=== PATIENT | female | born 1975 | race Caucasian/White ===

== ENCOUNTER → 2018-12-18 14:39 | Outpatient (CLI) | payer OTHER, SELFPAY ==
--- NOTE | 2018-12-18 14:42 | DI.US.S_ITS ---
PROCEDURE: US PELVIC COMPLETE INDICATIONS: PELVIC PAIN. There is a history of partial right oophorectomy for benign ovarian mass. Family history of cervical, uterus, and ovarian cancer. TECHNIQUE: Real-time scanning was performed of the pelvic organs, with image documentation. Additional endovaginal scanning was necessary due to incomplete visualization of the adnexal and endometrial structures by transabdominal scanning. COMPARISON: None. FINDINGS: Transabdominal scanning: No pathologic free abdominal or pelvic fluid. Endovaginal scanning: Uterus: Uterus is normal in size at 8.1 x 4.3 x 4.9 cm. The endometrium measures 4 mm in combined thickness. Ovaries: The right ovary measures 2.4 x 1.6 x 2 cm. The left ovary measures 3.1 x 2.1 x 2.1 cm. The ovaries have a normal sonographic appearance, with normal-appearing cystic follicles. There is a 1.9 cm dominant follicle involving the left ovary, which is considered to be within normal limits. No adnexal masses are seen. IMPRESSION: No suspicious masses are seen. No acute findings are seen. Normal appearing bilateral cystic ovarian follicles are seen. Dictated by: Lexa Balderrama M.D. on 12/19/2018 at 8:21 Approved by: Lexa Balderrama M.D. on 12/19/2018 at 8:28
== END ==
PROVIDERS: PCP Physician Assistant; Visit Provider Obstetrics & Gynecology
DX: R10.2 Pelvic and perineal pain (principal); Z87.42 Personal history of other diseases of the female genital tract; Z80.49 Family history of malignant neoplasm of other genital organs; Z80.41 Family history of malignant neoplasm of ovary
CPT/HCPCS: 76830; 76856

== ENCOUNTER → 2018-12-21 12:50 | Outpatient (CLI) | payer OTHER, SELFPAY ==
[2018-12-21 15:21] LABS: Alanine Aminotransferase 48 IU/L (9-52); Albumin 4.3 g/dL (3.5-5.0); Albumin Globulin Ratio 1.6 (1.0-2.8); Alkaline Phosphatase 66 U/L (38-126); Aspartate Aminotransferase 28 IU/L (14-36); Bilirubin Total 0.3 mg/dL (0.2-1.3); Blood Urea Nitrogen 13 mg/dL (7-17); Calcium 9.1 mg/dL (8.4-10.2); Carbon Dioxide 28 mmol/L (22-32); Chloride 100 mmol/L (98-107); Estimated Glomerular Filt Rate > 60.0 mL/min (>60); Globulin 2.7 g/dL (1.7-4.1); Glucose 99 mg/dL (70-100); HEMOLYSIS < 15 (0-50); Potassium 4.5 mmol/L (3.4-5.1); Sodium 137 mmol/L (137-145)
[2018-12-21 15:37] LABS: Free T3, Triiodothyronine Free 3.26 pg/mL (2.77-5.27); Free T4, Direct Thyroxine 0.76 ng/dL (0.78-2.19)
[2018-12-21 15:51] LABS: Thyroid Stimulating Hormone 2.39 uIU/mL (0.47-4.68)
== END ==
PROVIDERS: PCP Physician Assistant; Visit Provider Naturopath
DX: E06.3 Autoimmune thyroiditis (principal)
CPT/HCPCS: 36415; 80053; 84439; 84443; 84481

== ENCOUNTER → 2019-01-09 11:35 | Outpatient (CLI) | payer OTHER, SELFPAY ==
[2019-01-09 12:21] LABS: Influenza A and B by PCR Rapid Negative (Negative)
== END ==
PROVIDERS: PCP Physician Assistant; Visit Provider Obstetrics & Gynecology
DX: R50.9 Fever, unspecified (principal); M79.10 Myalgia, unspecified site
CPT/HCPCS: 87400

== ENCOUNTER → 2019-01-09 11:56 | Outpatient (CLI) | payer OTHER, SELFPAY ==
[2019-01-09 12:59] LABS: Cancer Antigen 125 7 U/mL (0-35)
== END ==
PROVIDERS: PCP Physician Assistant; Visit Provider Obstetrics & Gynecology
DX: N83.202 Unspecified ovarian cyst, left side (principal); R50.9 Fever, unspecified; M79.10 Myalgia, unspecified site
CPT/HCPCS: 36415; 86304; 87400

== ENCOUNTER → 2019-01-11 15:07 | Outpatient (CLI) | payer OTHER, SELFPAY ==
[2019-01-11 19:54] LABS: Influenza A and B by PCR Rapid Negative (Negative)
== END ==
PROVIDERS: PCP Physician Assistant; Visit Provider Physician Assistant
DX: R68.89 Other general symptoms and signs (principal)
CPT/HCPCS: 87400

== ENCOUNTER → 2019-06-05 15:39 | Outpatient (CLI) | payer OTHER, SELFPAY ==
--- NOTE | 2019-06-05 15:42 | DI.RAD.S_ITS ---
PROCEDURE: XR ANKLE LT MIN 3V INDICATIONS: ankle pain TECHNIQUE: 3 views of the ankle were acquired. COMPARISON: None. FINDINGS: Bones: No displaced acute fractures or dislocations are identified. There moderate degenerative changes of the tibiotalar joint, best appreciated along the anterior margin of the joint, which may be related to previous injury. Irregularity of the lateral malleolus and medial malleolus tips probably is related to previous ligamentous injury. There are prominent plantar and Achilles spurs present. There is no suspicious osseous lesion. Ankle mortise is well-maintained. Soft tissues: There is an ankle effusion. Moderate soft tissue swelling about the ankle is present. IMPRESSION: 1. No acute fracture of the left ankle is appreciated. 2. Moderate degenerative changes of the ankle joint. 3. Ankle effusion. 4. Achilles and plantar calcaneal spurs. Dictated by: Tip Wells M.D. on 06/05/2019 at 15:06 Approved by: Tip Wells M.D. on 06/05/2019 at 15:13
== END ==
PROVIDERS: PCP Physician Assistant; Visit Provider Physician Assistant
DX: M25.572 Pain in left ankle and joints of left foot (principal); M25.472 Effusion, left ankle; M77.32 Calcaneal spur, left foot
CPT/HCPCS: 73610

== ENCOUNTER → 2019-06-12 17:07 | Outpatient (CLI) | payer OTHER, SELFPAY ==
--- NOTE | 2019-06-12 | DI.MRI.S_ITS ---
PROCEDURE: MR ANKLE LT WO/W CON INDICATIONS: Left ankle and instability TECHNIQUE: Noncontrast sagittal T1 spin echo and T2 fast spin echo with fat saturation, axial proton density fast spin echo and T2 fast spin echo with fat saturation, axial T1 spin echo with fat saturation, coronal T1 spin echo and T2 fast spin echo with fat saturation through the ankle/hindfoot. Post-contrast axial, coronal, and sagittal T1 spin echo with fat saturation through the ankle/hindfoot. COMPARISON: [facility], CR, XR ANKLE LT MIN 3V, 06/05/2019, 15:41. FINDINGS: Image quality: Diagnostic. Bones and joints: No acute fracture, dislocation, or suspicious osseous lesion is identified involving the osseous structures of the midfoot or hindfoot. There is a prominent plantar calcaneal spur with corresponding mild increased marrow signal. There is subtle increased marrow signal also evident involving portions of the talus, which may be reactive. The ankle mortise is well-maintained. There are no osteochondral defects involving the tibial plafond for the talar dome. However, there are small defects of the hyaline articular cartilage present. There is an ankle effusion. Posterior subtalar joint effusion is also present. Medial structures: The deltoid and the spring ligaments are irregular and heterogeneous, suggesting scarring from previous partial thickness injury. There is mild increased signal involving the distal aspect of the tibialis posterior tendon near the level of the navicular without associated tearing. A small amount of fluid is contained within its corresponding tendon sheath. The flexor hallucis longus and flexor digitorum longus tendons are intact. The posterior tibial nerve to the region of the tarsal tunnel appears to be within normal limits. Lateral structures: The anterior and posterior distal tibiofibular ligaments are somewhat heterogeneous. The anterior talofibular ligament appears to be completely torn. The posterior talofibular ligament is intact and there is streaky increased heterogeneity. The calcaneofibular ligament is intact. There is enlargement and increased signal involving the peroneus longus tendon along the posterior margin of the lateral malleolus without a definite tear evident. The peroneus brevis tendon demonstrates increased signal, as well. Fluid is contained within their corresponding tendon sheaths. There is increased signal evident within the region of the sinus tarsi. Anterior structures: The tibialis anterior, extensor hallucis longus, and extensor digitorum longus tendons appear intact. Posterior and plantar structures: Achilles tendon is intact. Borderline thickening of the medial band of the plantar fascia is present. Post contrast images: No suspicious osseous or soft tissue enhancement is evident. No soft tissue masses are appreciated. Mild synovial enhancement of the tibiotalar joint and the posterior subtalar joint are present. IMPRESSION: 1. Mild degenerative changes of the mid foot and hindfoot joints. 2. Moderate peroneus longus tendinopathy without significant tearing. There is also mild peroneus brevis tendinopathy. 3. Full-thickness anterior talofibular ligament tear may be chronic. Scarring of the other medial and lateral ankle ligaments is present without additional full-thickness tear is evident. 4. Mild tibialis posterior tenosynovitis. 5. Small tibiotalar and posterior subtalar joint effusions. Dictated by: Tip Wells M.D. on 06/13/2019 at 13:33 Approved by: Tip Wells M.D. on 06/13/2019 at 13:48
== END ==
PROVIDERS: PCP Physician Assistant; Visit Provider Podiatrist
DX: M67.90 Unspecified disorder of synovium and tendon, unspecified site (principal); M65.9 Synovitis and tenosynovitis, unspecified; M25.472 Effusion, left ankle
CPT/HCPCS: 73723; A9579

== ENCOUNTER → 2019-09-24 15:22 | Outpatient (CLI) | payer OTHER, SELFPAY ==
[2019-09-24 17:21] LABS: Hematocrit 40.8 % (36-46); Hemoglobin 13.6 g/dL (12.0-16.0)
[2019-09-24 17:53] LABS: Alanine Aminotransferase 27 IU/L (<35); Albumin Globulin Ratio 1.5 (1.0-2.8); Alkaline Phosphatase 71 U/L (38-126); Aspartate Aminotransferase 24 IU/L (14-36); Bilirubin Total 0.3 mg/dL (0.2-1.3); Blood Urea Nitrogen 9 mg/dL (7-17); Carbon Dioxide 31 mmol/L (22-32); Chloride 101 mmol/L (98-107); Estimated Glomerular Filt Rate > 60.0 mL/min (>60); Globulin 2.7 g/dL (1.7-4.1); Glucose 83 mg/dL (70-100); HEMOLYSIS < 15 (0-50); Potassium 4.6 mmol/L (3.4-5.1); Sodium 137 mmol/L (137-145); Total Protein 6.7 g/dL (6.3-8.2)
[2019-09-24 18:16] LABS: Free T3, Triiodothyronine Free 4.52 pg/mL (2.77-5.27); Free T4, Direct Thyroxine 0.76 ng/dL (0.78-2.19)
[2019-09-24 18:29] LABS: Thyroid Stimulating Hormone 0.33 uIU/mL (0.47-4.68)
== END ==
PROVIDERS: PCP Physician Assistant; Visit Provider Nurse Practitioner
DX: R42 Dizziness and giddiness (principal); R53.83 Other fatigue; R63.5 Abnormal weight gain; Z86.39 Personal history of other endocrine, nutritional and metabolic disease
CPT/HCPCS: 36415; 80053; 84439; 84443; 84481; 85014; 85018

== ENCOUNTER → 2019-10-01 14:06 | Outpatient (CLI) | payer OTHER, SELFPAY ==
--- NOTE | 2019-11-09 14:51 | P.HOLT.S_ITS ---
[employer] Report Referral & Results Date Patient Seen: 10/01/19 Requesting provider: Georgette Maddox Indication: Dizziness Duration of monitoring (days): 7 Diary information: There were 109 patient triggered events and 0 patient diary entries The patient triggered events were associated variably with sinus rhythm, supraventricular ectopic beats, ventricular ectopic beats, ventricular bigeminy, and ventricular bigeminy Data: Minimum heart rate identified was 56 beats per minute at 04:57 a.m. on 10/04/2019 Maximum heart rate identified was 151 beats per minute at 16:30 on 10/06/2019 Less than 1% of identified beats or either ventricular or supraventricular ectopic in origin Patient had ventricular trigeminy with the longest run being 16.7 seconds and ventricular bigeminy with a long strong being 5.1 seconds. Impression: Patient with ventricular supraventricular ectopy as above. No clear correlation between any reported symptoms despite the over 100 triggered events and any particular dysrhythmia were identified on this study. Patient's triggered events were associated with a multitude of different dysrhythmias as noted above.
== END ==
PROVIDERS: PCP Physician Assistant; Visit Provider Nurse Practitioner
DX: R42 Dizziness and giddiness (principal); R00.2 Palpitations
CPT/HCPCS: 0296T; 0298T

== ENCOUNTER → 2019-11-27 15:50 | Outpatient (CLI) | payer OTHER, SELFPAY ==
[2019-11-27 16:36] LABS: Magnesium 2.1 mg/dL (1.6-2.3)
[2019-11-27 17:06] LABS: Thyroid Stimulating Hormone 0.75 uIU/mL (0.47-4.68)
== END ==
PROVIDERS: PCP Physician Assistant; Referring Provider Nurse Practitioner; Visit Provider Nurse Practitioner
DX: I47.1 Supraventricular tachycardia (principal); I49.3 Ventricular premature depolarization; R00.2 Palpitations; R42 Dizziness and giddiness; E03.9 Hypothyroidism, unspecified
CPT/HCPCS: 36415; 83735; 84443

== ENCOUNTER → 2019-12-10 06:50 | Outpatient (CLI) | payer OTHER, SELFPAY ==
--- NOTE | 2019-12-10 06:51 | DI.ECHO.S_ITS ---
[facility]---------+ [facility] +---------+ : : [address] : : : : [id number] : : : : Phone: [phone] Echocardiogram Report + + :Name: ROBIN PETERSON Study Date: 12/10/2019 Height: 69 in : :[facility] Weight: 232 lb : : Gender: Female BSA: 2.2 m2 : :: 1975 Age: 44 yrs BP: 122/74 mmHg: :Reason For Study: TACHYCARDIA : : Performed By: Sabra Bowie : :Referring: JOSEPH DANIEL : + + Interpretation Summary The left ventricle is normal in size and wall thickness. The left ventricular ejection fraction is normal. Left ventricular wall motion is normal. The right ventricle is normal in size and function. The right ventricular systolic pressure is estimated to be at least 26 mmHg based on an estimated right atrial pressure of 3 mm Hg. Both atria are normal in size. -No structural abnormality by echocardiogram. -No prior echo for comparison. Procedure: A two-dimensional transthoracic echocardiogram with color flow and Doppler was performed. The study quality was technically adequate. There is no prior echocardiogram noted for this patient. The patient was in normal sinus rhythm during the exam. The patient had occasional PVCs during the exam. Left Ventricle: The left ventricle is normal in size and wall thickness. The ejection fraction is estimated to be 60-65%. The left ventricular ejection fraction is normal. Left ventricular wall motion is normal. Diastolic parameters suggest probable normal left ventricular diastolic function and normal filling pressures. Right Ventricle: The right ventricle is normal in size and function. TAPSE 3.2 cm. Atria: Both atria are normal in size. There is no Doppler evidence for an interatrial shunt. Mitral Valve: The mitral valve is normal in structure and function. There is trace mitral regurgitation. Aortic Valve: The aortic valve is trileaflet. The aortic valve opens well. No aortic regurgitation is present. Tricuspid Valve: The tricuspid valve is normal in structure and function. There is mild tricuspid regurgitation. The right ventricular systolic pressure is estimated to be at least 26 mmHg based on an estimated right atrial pressure of 3 mm Hg. Pulmonic Valve: The pulmonic valve is not well seen, but is grossly normal. There is a trace or physiologic amount of pulmonic regurgitation. Great Vessels: The aortic root is normal size. The ascending aorta could not be visualized. The aortic arch is normal in size. The IVC is of normal diameter and collapses greater than 50% with a sniff. This suggests a low right atrial pressure of 3 mm Hg. Pericardium/ Pleura There is no pericardial effusion. MMode/2D Measurements & Calculations LVIDd: 4.7 cm LVOT diam: 2.0 cm LVIDs: 3.4 cm Ao root diam: 2.2 cm FS: 27.6 % asc Aorta Diam: 2.8 cm EPSS: 0.33 cm Ao Arch Diam (Prox Trans): 2.7 cm IVSd: 0.57 cm LVPWd: 0.78 cm LV gomez. diameter/BSA (cm/m^2): 2.1 LV sys. diameter/BSA (cm/m^2): 1.5 LA A2 area: 17.1 cm2 RA long axis: 5.1 cm LA A4 area: 16.6 cm2 RA area: 14.2 cm2 LA length (vol): 5.3 cm RA vol: 33.5 ml LA vol: 45.6 ml RA : 15.2 ml/m2 LA vol index: 20.7 ml/m2 IVC diam: 1.4 cm RVD1 (basal): 3.1 cm RVD2 (mid): 2.5 cm TAPSE: 3.6 cm Doppler Measurements & Calculations Ao V2 max: 138.5 cm/sec LVOT Max Sergio: 119.7 cm/sec Ao V2 mean: 92.9 cm/sec LV V1 max P.7 mmHg Ao max P.7 mmHg LV V1 VTI: 25.4 cm Ao mean P.8 mmHg OCTAVIANO(I,D): 2.9 cm2 Ao V2 VTI: 27.0 cm OCTAVIANO(V,D): 2.7 cm2 sev ratio: 0.94 OCTAVIANO indexed to BSA (cm^2/m^2): 1.3 MV E max sergio: 105.7 cm/sec TR max sergio: 221.8 cm/sec MV A max sergio: 70.0 cm/sec TR max P.9 mmHg MV E/A: 1.5 PA V2 max: 75.0 cm/sec Med Peak E' Sergio: 11.6 cm/sec PA V2 mean: 49.5 cm/sec E/E' med: 9.1 PA mean P.1 mmHg Lat Peak E' Sergio: 12.0 cm/sec PA pr(Accel): 18.6 mmHg E/E' lat: 8.8 E/e' average: 9.0 MV dec time: 0.23 sec SV(LVOT): 78.3 ml Electronically signed by: Wai Kothari M.D. on Reading Physician:12/10/2019 09:53 AM
--- NOTE | 2019-12-10 15:36 | PM.TREADMILL ---
Cardiac Stress Test Report Referral & Results Date Patient Seen: 12/10/19 Requesting provider: Georgette Maddox Indication: Symptomatic dysrhythmia Rest ECG: Unremarkable Procedure Note: Today following both written and verbal informed consent the patient was exercised according to a standard Jose protocol patient went for a total of 7 minutes 40 seconds achieving a maximum heart rate of 161 maximum systolic blood pressure of 165. This is approximately 10.1 METS. Exercise was terminated at this point because of targets were met. Patient was also given Cardiolite through a previously started Hep-Lock IV by the diagnostic imaging staff approximately 1 minute prior to the cessation of exercise. No dysrhythmias No ST-T segment changes Patient's functional aerobic impairment rated 0 on the sedentary scale Impression: Average exercise capacity No evidence of ischemia based on usual ECG criteria Please see perfusion imaging report as well Please note: Actual ECG tracings can be found in the PACS system.
--- NOTE | 2019-12-10 19:10 | DI.NM.S_ITS ---
DATE OF SERVICE: 12/10/2019 PROCEDURE PERFORMED: Exercise treadmill stress and rest myocardial perfusion imaging study with gating to assess ejection fraction and regional wall motion using a one day protocol. ORDERING PROVIDER: QUAN García. INDICATIONS: The patient is a 44-year-old obese female with exertional dyspnea, SVT, and frequent PVCs. EXERCISE TREADMILL TESTING: The patient was able to exercise for 7 minutes 40 seconds on a standard Jose protocol, suggesting mildly impaired exercise capacity with an GAYATRI of +10% She had a normal heart rate and blood pressure response to exercise, achieving a maximum heart rate of 161 BPM (91% of her predicted maximum). She had no chest discomfort. Her resting ECG is normal and there are no ischemic changes with stress. There were no arrhythmias seen. Prior to stress testing, the patient had been had been injected with 14.8 mCi of technetium-99m Myoview and was imaged 30 minutes later using a gated SPECT acquisition protocol. She was reinjected at 6 minutes 30 seconds of exercise at a heart rate of 150 bpm with 25.7 mCi of technetium-99m Myoview was imaged 20 minutes later, again using a gated SPECT acquisition protocol. FINDINGS: RAW DATA:: There is fair myocardial tracer uptake with prominent breast shadows that clearly produce significant attenuation artifact. Lung-heart ratio was normal at 0.39 with a normal TID ratio 1.15. QUANTITATED GATED SPECT:: Post-stress ejection fraction is estimated at 71% without any focal wall motion abnormality. Specifically, the anterior wall appears to have normal contractility. The resting ejection fraction is estimated at 74% with a normal resting end-diastolic volume of 94 mL. MYOCARDIAL PERFUSION IMAGING:: Post-stress supine images are of marginal quality but with a mild defect in the distal portion of the left ventricle and apex, consistent with a breast attenuation artifact, supported by its complete resolution on the prone images, which reveal a uniform, normal tracer pattern. The resting images are also of marginal quality. While the small apical defect seems to improve, this likely reflects breast attenuation artifact given its resolution on the prone images. IMPRESSION: 1. Probable normal myocardial perfusion study. 2. Small, mild, reversible apical defect that completely resolves on prone imaging that likely reflects breast attenuation artifact. There is no compelling evidence for significant myocardial ischemia or previous myocardial infarction. 3. Normal left ventricular systolic function without any focal wall motion abnormality. 4. Mildly impaired exercise capacity without angina or ECG evidence of ischemia or arrhythmia. Brenda Villar - ROBBIE/josé manuel/donnie doc#: [id number]/job#: [id number] dd: 12/10/2019 17:09:00 dt: 12/10/2019 18:30:00 DICTATING MD/COPIES TO: Ethan Perez MD; QUAN García COPIES MNE: KALEB; ; QUAN García
== END ==
PROVIDERS: PCP Physician Assistant; Referring Provider Nurse Practitioner; Visit Provider Nurse Practitioner
DX: I07.1 Rheumatic tricuspid insufficiency (principal); I47.1 Supraventricular tachycardia; R06.00 Dyspnea, unspecified; R00.2 Palpitations; R42 Dizziness and giddiness; I49.3 Ventricular premature depolarization; E66.9 Obesity, unspecified
CPT/HCPCS: 78452; 93016; 93017; 93018; 93306; A9502

== ENCOUNTER → 2020-04-02 12:47 | Outpatient (CLI) | payer OTHER, SELFPAY ==
--- NOTE | 2020-04-02 | DI.MRI.S_ITS ---
PROCEDURE: MR CERVICAL SPINE WO CON INDICATIONS: Spinal stenosis, cervical region and lumbar region TECHNIQUE: Noncontrast sagittal T1 spin echo and T2 fast spin echo, sagittal STIR, foraminal oblique sagittal T2 fast spin echo, and axial gradient echo or T2 fast spin echo through the cervical spine. COMPARISON: [facility] [place], CR, XR CERVICAL SPINE 6+ VIEWS, 03/13/2020, 15:09. FINDINGS: Image quality: Excellent. Alignment and Curvature: There is normal bony alignment. Bone Marrow: Mild reactive endplate changes noted adjacent to the C4-C5 and C5-C6 discs. Spinal Cord: Visualized spinal cord has normal size and signal. No cerebellar tonsillar herniation. Paraspinous Soft Tissues: No paravertebral masses. Prevertebral soft tissues are normal in thickness. C2-C3: Normal appearance. C3-C4: Loss of the signal. Mild, diffuse disc bulge. Small central disc protrusion. Mild narrowing of the central canal. No neural foraminal narrowing. No neural compression. C4-C5: Loss of disc signal and mild loss of disc height. Mild, diffuse disc bulge. Mild right and moderate left uncovertebral joint hypertrophy. Mild to moderate narrowing of the central canal. Moderate bilateral neural foraminal narrowing. No neural compression. C5-C6: Loss of disc signal and height. Mild, diffuse disc bulge. Bilateral uncovertebral joint hypertrophy. Mild to moderate narrowing of the central canal. Severe bilateral neural foraminal narrowing with compression of the exiting C6 nerve roots. C6-C7: Loss of the signal. No central stenosis. No neural foraminal narrowing. No neural compression. C7-T1: Normal appearance. IMPRESSION: 1. Multilevel degenerative disease 2. Multilevel uncovertebral arthropathy. 3. Mild to moderate C4-C5 and C5-C6 central canal narrowing. Mild C3-C4 central 4. Severe bilateral C5-C6 neural foraminal narrowing. Moderate bilateral C4-C5 neural foraminal narrowing. 5. Compression of the exiting bilateral C6 nerve roots secondary to C5-C6 neural foraminal narrowing. Please correlate with clinical data. Dictated by: Felipa Kuhn MD, PhD on 04/02/2020 at 16:10 Approved by: Felipa Kuhn MD, PhD on 04/02/2020 at 16:34
--- NOTE | 2020-04-02 | DI.MRI.S_ITS ---
PROCEDURE: MR LUMBAR SPINE WO CON INDICATIONS: Spinal stenosis, cervical region and lumbar region TECHNIQUE: Noncontrast sagittal T1 spin echo and T2 fast echo, sagittal STIR, axial T1 and T2 fast spin echo through the lumbar spine. In cases with scoliosis, additional coronal T2 fast spin echo may be performed. COMPARISON: [facility] [place], CR, XR LUMBAR SPINE WITH OLBIQUES PLUS FLEXION EXTENSION, 03/13/2020, 15:16. FINDINGS: Image quality: Excellent. Alignment and Curvature: There is mild L5-S1 anterolisthesis secondary to bilateral L5 pars interarticularis defects. There is trace L2-L3 and L3-L4 retrolisthesis secondary to facet hypertrophy. Bone Marrow: Marrow is of normal overall signal. No acute vertebral body compression fractures. Spinal Cord: Conus medullaris terminates at the L2 level. Visualized cord demonstrates normal signal and size. Paraspinous Soft Tissues: No paravertebral masses. L1-L2: Loss of the signal and height. Minimal, diffuse disc bulge. No central stenosis. No neural foraminal narrowing. No neural compression. L2-L3: Loss of the signal and height. Mild, diffuse disc bulge. Mild bilateral facet hypertrophy. No central stenosis. No neural foraminal narrowing. No neural compression L3-L4: Disc has a normal appearance. Mild bilateral facet hypertrophy. No central stenosis. No neural foraminal narrowing. No neural compression. L4-L5: Loss of disc signal and height. Moderate, diffuse disc bulge. Mild bilateral facet hypertrophy. Mild narrowing of the central canal. Mild bilateral neural foraminal narrowing. No neural compression. L5-S1: Loss of disc signal. Mild, diffuse disc bulge. Mild bilateral facet hypertrophy. No central stenosis. Severe bilateral neural foraminal narrowing with compression of the exiting L5 nerve roots. IMPRESSION: 1. Grade 1 L5-S1 isthmic spondylolisthesis. 2. Multilevel degenerative disease. 3. Multilevel facet arthropathy. 4. No significant central canal narrowing. 5. Severe bilateral L5-S1 neural foraminal narrowing with compression of the exiting bilateral L5 nerve roots. Please correlate with clinical data. Dictated by: Felipa Kuhn MD, PhD on 04/02/2020 at 14:48 Approved by: Felipa Kuhn MD, PhD on 04/02/2020 at 14:59
== END ==
PROVIDERS: PCP Nurse Practitioner; Referring Provider Physical Medicine & Rehabilitation; Visit Provider Physical Medicine & Rehabilitation
DX: M48.02 Spinal stenosis, cervical region (principal); M50.31 Other cervical disc degeneration, high cervical region; M47.812 Spondylosis without myelopathy or radiculopathy, cervical region; M48.07 Spinal stenosis, lumbosacral region; M51.36 Other intervertebral disc degeneration, lumbar region; M51.37 Other intervertebral disc degeneration, lumbosacral region; M47.816 Spondylosis without myelopathy or radiculopathy, lumbar region; M47.817 Spondylosis without myelopathy or radiculopathy, lumbosacral region; M43.17 Spondylolisthesis, lumbosacral region
CPT/HCPCS: 72141; 72148

== ENCOUNTER → 2020-06-26 14:13 | Outpatient (CLI) | payer OTHER, SELFPAY ==
--- NOTE | 2020-06-26 | DI.CT.S_ITS ---
PROCEDURE: CT LUMBAR SPINE WO CON INDICATIONS: SPINAL STENOSIS TECHNIQUE: Noncontrast 3 mm thick sections acquired from the T12 level to the sacrum. Sagittal and coronal reformats were constructed. For radiation dose reduction, the following was used: automated exposure control. COMPARISON: [facility], MR, MR LUMBAR SPINE WO CON, 04/02/2020, 13:04. FINDINGS: Image quality: Excellent. Bones: No acute vertebral body compression fractures. No suspicious lytic or blastic bony lesions. Central spinal caliber is of normal overall caliber. At L5, bilateral pars defects are seen. There is associated mild grade 1 anterolisthesis at the L5-S1 level. T12-L1: Mild loss of disc height is seen. No significant neural foraminal or central canal narrowing can be seen. L1-L2: There is mild loss of disc height seen. No significant neural foraminal or central canal narrowing can be seen. L2-L3: Mild to moderate loss of disc height is seen. Mild generalized disc bulge is seen. No significant neural foraminal or central canal narrowing can be seen. L3-L4: The disc height is well preserved. Minimal disc bulge is seen. No significant neural foraminal or central canal narrowing can be seen. L4-L5: [id number]-[id number] loss of disc height is seen. Macrovascular moderate disc bulge is seen, with a central disc protrusion, as on series 3, image 64. There is moderate bilateral neural foraminal narrowing seen. Mild to moderate central canal narrowing is seen. L5-S1: Moderate loss of disc height is seen. Vacuum disc phenomenon is seen at this level. Moderate generalized disc bulge is seen. There is moderate to severe bilateral neural foraminal narrowing seen. There is a degree of compression seen upon the exiting nerve roots. No significant central canal narrowing is seen. Soft tissues: No retroperitoneal masses or hematomas. Visualized aorta is normal in caliber. IMPRESSION: At L5-S1, there is grade 1 anterolisthesis seen, with associated bilateral pars defects. Moderate to severe bilateral neural foraminal narrowing can be seen at this level. Milder degenerative changes are seen elsewhere. Dictated by: Lexa Balderrama M.D. on 06/26/2020 at 14:49 Approved by: Lexa Balderrama M.D. on 06/26/2020 at 14:53
== END ==
PROVIDERS: PCP Nurse Practitioner; Referring Provider Neurological Surgery; Visit Provider Neurological Surgery
DX: M48.061 Spinal stenosis, lumbar region without neurogenic claudication (principal); M48.07 Spinal stenosis, lumbosacral region; M43.17 Spondylolisthesis, lumbosacral region
CPT/HCPCS: 72131

== ENCOUNTER → 2020-09-09 12:21 | Outpatient (CLI) | payer OTHER, SELFPAY ==
--- NOTE | 2020-09-09 12:23 | DI.MG.S_ITS ---
BILATERAL DIGITAL SCREENING MAMMOGRAM 3D/2D WITH CAD: 09/09/2020 CLINICAL: Routine screening. Baseline exam. No prior exams were available for comparison. The tissue of both breasts is predominantly fatty. Current study was also evaluated with a Computer Aided Detection (CAD) system. No significant masses, calcifications, or other findings are seen in either breast. IMPRESSION: NEGATIVE There is no mammographic evidence of malignancy. A 1 year screening mammogram is recommended. This exam was interpreted at Station ID: [id number]. NOTE: For mammograms, a report in lay terms will be sent to the patient. Approximately 15% of breast malignancies will not be visualized mammographically. In the management of a palpable breast mass, a negative mammogram must not discourage biopsy of a clinically suspicious lesion. Electronically Signed By: Coral mendoza/geovanni:09/09/2020 15:46:31 letter sent: Normal Exam ACR BI-RADS Category 1: Negative [id number]
== END ==
PROVIDERS: PCP Naturopath; Referring Provider Naturopath; Visit Provider Naturopath
DX: Z12.31 Encounter for screening mammogram for malignant neoplasm of breast (principal)
CPT/HCPCS: 77063; 77067

== ENCOUNTER → 2020-10-31 15:01 | Outpatient (CLI) | payer OTHER, SELFPAY | PROVIDERS: PCP Naturopath; Visit Provider Physician Assistant | DX: R10.9 Unspecified abdominal pain (principal); R31.9 Hematuria, unspecified | CPT/HCPCS: 87077; 87086; 87186 ==

== ENCOUNTER → 2021-01-15 12:40 | Outpatient (CLI) | payer OTHER, SELFPAY ==
[2021-01-15 13:55] LABS: Add Manual Diff / Slide Review NO; Basophils Absolute Auto 0 /uL (0-100); Basophils Percent Auto 0.4 % (0-2); Eosinophils Absolute Auto 100 /uL (0-450); Eosinophils Percent Auto 1.7 % (2-4); Hematocrit 39.2 % (36-46); Hemoglobin 13.1 g/dL (12.0-16.0); Lymphocytes Absolute Auto 3200 /uL (1100-4500); Lymphocytes Percent Auto 38.5 % (25-40); Mean Corpuscular HGB Conc 33.4 % (30-36); Mean Corpuscular Hemoglobin 29.3 PG (26-34); Mean Corpuscular Volume 87.9 fL (80-100); Monocytes Absolute Auto 600 /uL (0-900); Monocytes Percent Auto 7.6 % (3-14); Neutrophils Absolute Auto 4300 /uL (1500-7000); Neutrophils Percent Auto 51.8 % (50-75); Platelet Count 256 X10^3/uL (150-400); Red Blood Cell Count 4.47 X10^6/uL (4.0-5.2); Red Cell Distribution Width 13.8 % (11.6-14.8); White Blood Cell Count 8.3 X10^3/uL (4.5-11.0)
[2021-01-15 14:23] LABS: Alanine Aminotransferase 29 IU/L (<35); Albumin 4.2 g/dL (3.5-5.0); Albumin Globulin Ratio 1.4 (1.0-2.8); Alkaline Phosphatase 56 U/L (38-126); Aspartate Aminotransferase 26 IU/L (14-36); BUN Creatinine Ratio 25.9 (6-22); Bilirubin Total 0.1 mg/dL (0.2-1.3); Blood Urea Nitrogen 14 mg/dL (7-17); Calcium 9.6 mg/dL (8.4-10.2); Carbon Dioxide 31 mmol/L (22-32); Chloride 102 mmol/L (98-107); Cholesterol 180 mg/dL (140-199); Estimated Glomerular Filt Rate > 60.0 mL/min (>60); Globulin 2.9 g/dL (1.7-4.1); Glucose 79 mg/dL (70-100); HDL Cholesterol 72 mg/dL (40-60); HEMOLYSIS < 15 (0-50); LDL Cholesterol Calculated 84 mg/dL (<100); Potassium 4.1 mmol/L (3.4-5.1); Sodium 140 mmol/L (137-145); Total Protein 7.1 g/dL (6.3-8.2); Triglycerides 122 mg/dL (35-150)
[2021-01-15 18:19] LABS: Free T4, Direct Thyroxine 0.89 ng/dL (0.78-2.19)
[2021-01-16 05:36] LABS: HBsAg Screen Negative (Negative); Hepatitis A Antibody IgM Negative (Negative); Hepatitis B Core Antibody IgM Negative (Negative); Hepatitis C Antibody <0.1 s/co ratio (0.0-0.9)
== END ==
PROVIDERS: PCP Naturopath; Referring Provider Naturopath; Visit Provider Naturopath
DX: Z00.00 Encounter for general adult medical examination without abnormal findings (principal); E03.9 Hypothyroidism, unspecified; Z20.5 Contact with and (suspected) exposure to viral hepatitis
CPT/HCPCS: 36415; 80053; 80061; 80074; 84439; 84443; 85025

== ENCOUNTER 2021-01-21 13:37 | Emergency (ER) | payer OTHER, SELFPAY ==
[2021-01-21] VITALS (9 sets, daily range): BP systolic 116–154; BP diastolic 65–71; PULSE 76–91; RESP 17–29; TEMP 36.3; O2SAT 91–100; BMI 31.0
--- NOTE | 2021-01-21 13:47 | DI.RAD.S_ITS ---
PROCEDURE: XR CHEST 1V INDICATIONS: palpitations. TECHNIQUE: One view of the chest was acquired. COMPARISON: None. FINDINGS: Surgical changes and devices: None. Lungs and pleura: Lungs are clear. No pleural effusions or pneumothorax. Mediastinum: Mediastinal contours appear normal. Heart size is normal. Bones and chest wall: No suspicious bony lesions. Overlying soft tissues appear unremarkable. IMPRESSION: No acute process. Dictated by: Mauricio Lange M.D. on 01/21/2021 at 14:19 Approved by: Mauricio Lange M.D. on 01/21/2021 at 14:19
[2021-01-21 14:13] LABS: Add Manual Diff / Slide Review NO; Basophils Absolute Auto 100 /uL (0-100); Basophils Percent Auto 0.8 % (0-2); Eosinophils Absolute Auto 100 /uL (0-450); Eosinophils Percent Auto 1.6 % (2-4); Hematocrit 39.7 % (36-46); Hemoglobin 13.2 g/dL (12.0-16.0); Lymphocytes Absolute Auto 2400 /uL (1100-4500); Lymphocytes Percent Auto 27.5 % (25-40); Mean Corpuscular HGB Conc 33.2 % (30-36); Mean Corpuscular Hemoglobin 29.5 PG (26-34); Mean Corpuscular Volume 88.6 fL (80-100); Monocytes Absolute Auto 500 /uL (0-900); Monocytes Percent Auto 5.3 % (3-14); Neutrophils Absolute Auto 5600 /uL (1500-7000); Neutrophils Percent Auto 64.8 % (50-75); Platelet Count 261 X10^3/uL (150-400); Red Blood Cell Count 4.47 X10^6/uL (4.0-5.2); Red Cell Distribution Width 13.7 % (11.6-14.8); White Blood Cell Count 8.7 X10^3/uL (4.5-11.0)
[2021-01-21 14:18] LABS: INR 0.9 (0.9-1.3); Prothrombin Time 10.6 SECONDS (10.1-12.7)
[2021-01-21 14:20] LABS: PTT Partial Thromboplastin Tim 34 SECONDS (26.4-36.2)
[2021-01-21 14:23] LABS: Alanine Aminotransferase 24 IU/L (<35); Albumin 4.3 g/dL (3.5-5.0); Albumin Globulin Ratio 1.5 (1.0-2.8); Alkaline Phosphatase 61 U/L (38-126); Aspartate Aminotransferase 25 IU/L (14-36); BUN Creatinine Ratio 26.2 (6-22); Bilirubin Total 0.2 mg/dL (0.2-1.3); Blood Urea Nitrogen 16 mg/dL (7-17); Calcium 9.4 mg/dL (8.4-10.2); Carbon Dioxide 29 mmol/L (22-32); Chloride 101 mmol/L (98-107); Creatine Kinase 37 U/L (30-135); Estimated Glomerular Filt Rate > 60.0 mL/min (>60); Globulin 2.9 g/dL (1.7-4.1); Glucose 118 mg/dL (70-100); HEMOLYSIS < 15 (0-50); Magnesium 1.8 mg/dL (1.6-2.3); Potassium 3.9 mmol/L (3.4-5.1); Sodium 135 mmol/L (137-145); Total Protein 7.2 g/dL (6.3-8.2)
[2021-01-21 14:34] LABS: Troponin I < 0.012 ng/mL (0.01-0.034)
[2021-01-21 15:00] LABS: Thyroid Stimulating Hormone 2.98 uIU/mL (0.47-4.68)
--- NOTE | 2021-01-21 15:32 | ED.ARRPALP ---
HPI - Arrhythmia/Palpitations General Chief Complaint: Arrhythmia/Palpitations Stated Complaint: palpitations Time Seen by Provider: 01/21/21 15:11 Source: patient Mode of arrival: Ambulatory Limitations: no limitations History of Present Illness HPI narrative: Patient is a 46-year-old female who has a history of trigeminy and bigeminy who presents with palpitations. She took 12.5 mg of metoprolol at 5:30 a.m. this morning. She does have an occasional PVC on the monitor. She denies dizziness lightheadedness chest pain shortness of breath. She has high make sure she was not in bigeminy. She says that she has lot stress at work and this is likely causing her symptoms. She started to notice it yesterday but it was worse today. MD complaint: skipped beats Duration: intermittent Context: occurred during rest Arrhythmia history: other (PVCs) Related Data Home Medications Medication Instructions Recorded Confirmed cholecalciferol (vitamin D3) 5,000 unit PO QDAY #0 01/25/18 10/31/20 thyroid 37.5 each PO 11/20/19 10/31/20 Previous Rx's Medication Instructions Recorded albuterol sulfate 90 mcg/actuation 2 puff INHALATION Q4-6H PRN #8.5 08/25/18 aerosol inhaler gram clonazepam 0.5 mg tablet 0.25 mg PO BID PRN #10 tab 03/03/20 bupropion HCl 150 mg 24 hr tablet, 150 mg PO QAM #90 tab 04/02/20 extended release metoprolol succinate 25 mg 50 mg PO DAILY #60 tab 04/03/20 tablet,extended release 24 hr Allergies Allergy/AdvReac Type Severity Reaction Status Date / Time Cephalosporins AdvReac Mild RASH Verified 01/21/21 13:47 [CEPHALOSPORINS] Review of Systems Review of Systems Narrative: GENERAL: Denies chills, fatigue, malaise, fever, sweats, travel HEENT: Denies sinus pain, ear pain, sore throat, difficulty swallowing, neck pain RESPIRATORY: Denies dyspnea, cough, wheezing, hemoptysis, sputum. CARDIOVASCULAR: See HPI GASTROINTESTINAL: Denies nausea, vomiting, abdominal pain, diarrhea, constipation, melena. : Denies dysuria, frequency, incontinence, hematuria, urinary retention, flank pain. MUSCULOSKELETAL: Denies weakness, joint pain, or bony pain SKIN: No rash, no erythema, no pruritus NEUROLOGIC: Denies weakness, dizziness, headache, numbness, change in speech, confusion PSYCHIATRIC: No concerning psychosocial issues. 12 point review of systems is negative except for those stated above and HPI Patient History Medical History Anxiety Chickenpox (1980) Depression Facet arthropathy, lumbosacral Fractures (2010) Hypothyroidism (2010) Isthmic spondylolisthesis Lower back pain Mumps (1977) Nerve compression syndrome Ovarian cyst (1992) depression (2012) Reactive arthritis (2004) Surgical History History of nasal surgery (1991) History of tonsillectomy (1986) Hx of oophorectomy (1991) Status post breast reduction (2006) Family History Grandfather Age: 86 Lymphoma Grandmother Age: 84 Hypertension Mother Age: 64 Hypertension Grandfather No problems noted. Grandmother Myocardial infarction Social History Smoking Status: Never smoker Smoking Status: Never smoker alcohol intake frequency: 0-2 drinks per day Substance Use Type: does not use Exam Initial Vital Signs Initial Vital Signs: Vital Signs Temperature 97.3 F L 01/21/21 13:44 Pulse Rate 82 01/21/21 13:44 Respiratory Rate 18 01/21/21 13:44 Blood Pressure 154/67 H 01/21/21 13:44 Pulse Oximetry 99 01/21/21 13:44 GENERAL: Well-appearing, well-nourished and in no acute distress. HEENT: Head atraumatic,EOMI, pupils reactive, face symmetric, moist mucous membranes CARDIOVASCULAR: Regular rate and rhythm without murmurs, rubs or gallops. RESPIRATORY: Breath sounds equal bilaterally, no wheezes rales or rhonchi. ABDOMEN: Soft, nontender. Normoactive bowel sounds all 4 quadrants. No guarding or rebound. EXTREMITIES: Normal range of motion, no clubbing or edema. Neurovascularly intact NEUROLOGICAL: Alert and oriented x4.Normal gait and speech. Cranial nerves II through XII grossly intact. SKIN: Warm, dry, no laceration, no petechiae, no rashes or lesions. Course Orders Ordered: ED Orders 01/21/21 13:47 XR chest 1V Stat 01/21/21 13:48 EKG-12 Lead Stat 01/21/21 14:05 Complete Blood Count AUTO DIFF Stat Comprehensive Metabolic Panel Stat Magnesium Stat Partial Thromboplastin Time Stat Prothrombin Time INR Stat Thyroid Stimulating Hormone Stat Troponin & CK Cardiac Panel Stat Vital Signs Vital signs: Vital Signs - 8 hr 01/21/21 13:44 01/21/21 13:52 01/21/21 13:56 Temperature 97.3 F L Pulse Rate 82 76 80 Respiratory Rate 18 23 Blood Pressure 154/67 H 143/71 H Pulse Oximetry 99 91 100 01/21/21 14:00 01/21/21 14:30 01/21/21 15:00 Temperature Pulse Rate 91 H 78 78 Respiratory Rate 17 21 19 Blood Pressure Pulse Oximetry 100 100 96 01/21/21 15:30 01/21/21 15:36 01/21/21 15:38 Temperature Pulse Rate 91 H 84 Respiratory Rate 20 29 H Blood Pressure 116/65 116/65 Pulse Oximetry 99 100 MDM - Arrhythmia/Palpitations Lab Data Attestation: I reviewed the patient's lab results. Result diagrams: 01/21/21 14:05 01/21/21 14:05 Labs: Lab Results 01/21/21 01/21/21 01/21/21 Range/Units 14:05 14:05 14:05 WBC 8.7 (4.5-11.0) X10^3/uL RBC 4.47 (4.0-5.2) X10^6/uL Hgb 13.2 (12.0-16.0) g/dL Hct 39.7 (36-46) % MCV 88.6 (80-100) fL MCH 29.5 (26-34) PG MCHC 33.2 (30-36) % RDW 13.7 (11.6-14.8) % Plt Count 261 (150-400) X10^3/uL Neut % (Auto) 64.8 (50-75) % Lymph % (Auto) 27.5 (25-40) % [place] % (Auto) 5.3 (3-14) % Eos % (Auto) 1.6 L (2-4) % Baso % (Auto) 0.8 (0-2) % Neut # (Auto) 5600 (3982-5517) /uL Lymph # (Auto) 2400 (6058-5468) /uL [place] # (Auto) 500 (0-900) /uL Eos # (Auto) 100 (0-450) /uL Baso # (Auto) 100 (0-100) /uL PT 10.6 (10.1-12.7) SECONDS INR 0.9 (0.9-1.3) APTT 34 (26.4-36.2) SECONDS Sodium 135 L (137-145) mmol/L Potassium 3.9 (3.4-5.1) mmol/L Chloride 101 (98-107) mmol/L Carbon Dioxide 29 (22-32) mmol/L BUN 16 (7-17) mg/dL Creatinine 0.61 (0.52-1.04) mg/dL Estimated GFR > 60.0 (>60) mL/min BUN/Creatinine Ratio 26.2 H (6-22) Glucose 118 H (70-100) mg/dL Calcium 9.4 (8.4-10.2) mg/dL Magnesium 1.8 (1.6-2.3) mg/dL Total Bilirubin 0.2 (0.2-1.3) mg/dL AST 25 (14-36) IU/L ALT 24 (<35) IU/L Alkaline Phosphatase 61 (38-126) U/L Total Creatine Kinase 37 (30-135) U/L CK-MB (CK-2) TNP CK-MB (CK-2) Rel Index TNP Troponin I < 0.012 (0.01-0.034) ng/mL Total Protein 7.2 (6.3-8.2) g/dL Albumin 4.3 (3.5-5.0) g/dL Globulin 2.9 (1.7-4.1) g/dL Albumin/Globulin Ratio 1.5 (1.0-2.8) TSH (0.47-4.68) uIU/mL 01/21/21 Range/Units 14:05 WBC (4.5-11.0) X10^3/uL RBC (4.0-5.2) X10^6/uL Hgb (12.0-16.0) g/dL Hct (36-46) % MCV (80-100) fL MCH (26-34) PG MCHC (30-36) % RDW (11.6-14.8) % Plt Count (150-400) X10^3/uL Neut % (Auto) (50-75) % Lymph % (Auto) (25-40) % [place] % (Auto) (3-14) % Eos % (Auto) (2-4) % Baso % (Auto) (0-2) % Neut # (Auto) (2009-6212) /uL Lymph # (Auto) (9313-9676) /uL [place] # (Auto) (0-900) /uL Eos # (Auto) (0-450) /uL Baso # (Auto) (0-100) /uL PT (10.1-12.7) SECONDS INR (0.9-1.3) APTT (26.4-36.2) SECONDS Sodium (137-145) mmol/L Potassium (3.4-5.1) mmol/L Chloride (98-107) mmol/L Carbon Dioxide (22-32) mmol/L BUN (7-17) mg/dL Creatinine (0.52-1.04) mg/dL Estimated GFR (>60) mL/min BUN/Creatinine Ratio (6-22) Glucose (70-100) mg/dL Calcium (8.4-10.2) mg/dL Magnesium (1.6-2.3) mg/dL Total Bilirubin (0.2-1.3) mg/dL AST (14-36) IU/L ALT (<35) IU/L Alkaline Phosphatase (38-126) U/L Total Creatine Kinase (30-135) U/L CK-MB (CK-2) CK-MB (CK-2) Rel Index Troponin I (0.01-0.034) ng/mL Total Protein (6.3-8.2) g/dL Albumin (3.5-5.0) g/dL Globulin (1.7-4.1) g/dL Albumin/Globulin Ratio (1.0-2.8) TSH 2.98 (0.47-4.68) uIU/mL Imaging Data Chest x-ray: Radiologist's Impresson: PROCEDURE: XR CHEST 1V INDICATIONS: palpitations. TECHNIQUE: One view of the chest was acquired. COMPARISON: None. FINDINGS: Surgical changes and devices: None. Lungs and pleura: Lungs are clear. No pleural effusions or pneumothorax. Mediastinum: Mediastinal contours appear normal. Heart size is normal. Bones and chest wall: No suspicious bony lesions. Overlying soft tissues appear unremarkable. IMPRESSION: No acute process. Dictated by: Mauricio Lange M.D. on 01/21/2021 at 14:19 ECG Data Attestation: I personally reviewed and interpreted this ECG as follows: Interpretation: Normal sinus rhythm rate 83 p.r. interval 146 QRS [address] changes no T-wave inversions MDM Narrative Medical decision making narrative: Occasional PVC is noted on the monitor. She sent knees not in trigeminy or bigeminy. At this time she feels ready and able to go home. Discharge Plan Departure Patient Disposition: Home Clinical Impression: Premature ventricular contraction Instructions: Premature Ventricular Beats Activity Restrictions/Additional Instructions: *You have been diagnosed with PVCs *What to do: At this time no trigeminy or bigeminy. Follow-up with her primary care provider. Your thyroid is Within normal limits similar to 6 days ago. *Continue to take medications as directed *Follow up with your primary care provider in 2-3 days *Return to ER if you should have increasing palpitations dizziness lightheadedness or shortness of breath or any new, worsening or concerning symptoms Prescriptions: No Action albuterol sulfate 90 mcg/actuation HFA aerosol inhaler 2 puff INHALATION Q4-6H PRN (Reason: shortness of breath) Qty: 8.5 RF: 1 thyroid 37.5 each PO RF: 0 cholecalciferol (vitamin D3) 5,000 UNIT capsule 5,000 unit PO QDAY Qty: 0 RF: 0 clonazepam 0.5 mg tablet 0.25 mg PO BID PRN (Reason: anxiety) Qty: 10 RF: 2 bupropion HCl [Wellbutrin XL] 150 mg tablet extended release 24 hr 150 mg PO QAM Qty: 90 RF: 3 metoprolol succinate 25 mg tablet extended release 24 hr 50 mg PO DAILY Qty: 60 RF: 2 Referrals: Aubrie Zambrano [place] [Primary Care Provider] - Stand Alone Forms: Work Release Note
== END 2021-01-21 15:46 | disposition home or self-care (01) ==
PROVIDERS: Emergency Provider Emergency Medicine; PCP Naturopath
DX: I49.3 Ventricular premature depolarization (principal)
CPT/HCPCS: 36415; 71045; 80053; 82550; 83735; 84443; 84484; 85025; 85610; 85730; 93005; 99283; 99284

== ENCOUNTER 2021-10-19 07:39 | Emergency (ER) | payer OTHER, SELFPAY ==
[2021-10-19] VITALS (12 sets, daily range): BP systolic 104–111; BP diastolic 52–57; PULSE 63–73; RESP 18–25; TEMP 36.7; O2SAT 82–100; BMI 31.7
--- NOTE | 2021-10-19 07:50 | DI.RAD.S_ITS ---
PROCEDURE: XR CHEST 1V INDICATIONS: chest pain TECHNIQUE: One view of the chest was acquired. COMPARISON: [facility], [place], XR CHEST 1V, 01/21/2021, 13:54. FINDINGS: Surgical changes and devices: None. Lungs and pleura: Lungs are clear. No pleural effusions or pneumothorax. Mediastinum: Mediastinal contours appear unchanged. Heart size is normal. Bones and chest wall: No suspicious bony lesions. Overlying soft tissues appear unremarkable. IMPRESSION: No acute cardiopulmonary abnormality. Dictated by: Lyle Lane M.D. on 10/19/2021 at 8:11 Approved by: Lyle Lane M.D. on 10/19/2021 at 8:12
--- NOTE | 2021-10-19 07:58 | ED.ABDPAIN ---
HPI - Abdominal Pain General Chief Complaint: Abdominal Pain Stated Complaint: upper abd pain after ankle surgery Time Seen by Provider: 10/19/21 07:41 History of Present Illness HPI narrative: Patient is a 46-year-old female who had ankle repair surgery 5 days ago is as elective outpatient surgery presenting today with sudden onset of epigastric pain and diaphoresis. She is not having any chest pain or shortness of breath. She says the that she is quite sedentary since the surgery she gets up to use the restroom and that it. She is taking 325 aspirin daily. She was feeling nauseous she did not throw up. She was given fentanyl by EMS and is no longer having any pain or nausea. She denies any fever or chills. She has a history of trigeminy and PVCs which she says has been well controlled since stopping Wellbutrin in cutting out caffeine. She is no longer on metoprolol. Related Data Home Medications Medication Instructions Recorded Confirmed cholecalciferol (vitamin D3) 125 10,000 unit PO QDAY #0 cap 01/27/21 02/09/21 mcg (5,000 unit) capsule Previous Rx's Medication Instructions Recorded albuterol sulfate 90 mcg/actuation 2 puff INHALATION Q4-6H PRN #8.5 08/25/18 aerosol inhaler gram clonazepam 0.5 mg tablet 0.25 mg PO BID PRN #10 tab 03/03/20 bupropion HCl 150 mg 24 hr tablet, 150 mg PO QAM #90 tab 01/27/21 extended release (Wellbutrin XL) buspirone 5 mg tablet 5 mg PO BID #60 tab 01/27/21 metoprolol succinate 25 mg 50 mg PO DAILY #60 tab 01/27/21 tablet,extended release 24 hr Allergies Allergy/AdvReac Type Severity Reaction Status Date / Time Cephalosporins AdvReac Mild RASH Verified 01/27/21 11:03 [CEPHALOSPORINS] Review of Systems Review of Systems Narrative: GENERAL: Denies chills, fatigue, malaise, fever, sweats, travel HEENT: Denies sinus pain, ear pain, sore throat, difficulty swallowing, neck pain RESPIRATORY: Denies dyspnea, cough, wheezing, hemoptysis, sputum. CARDIOVASCULAR: Denies chest pain, palpitations, orthopnea, edema GASTROINTESTINAL: See HPI : Denies dysuria, frequency, incontinence, hematuria, urinary retention, flank pain. MUSCULOSKELETAL: see HPI SKIN: No rash, no erythema, no pruritus NEUROLOGIC: Denies weakness, dizziness, headache, numbness, change in speech, confusion PSYCHIATRIC: No concerning psychosocial issues. 12 point review of systems is negative except for those stated above and HPI Patient History Medical History Anxiety Chickenpox (1980) Depression Facet arthropathy, lumbosacral Fractures (2010) Hypothyroidism (2010) Isthmic spondylolisthesis Lower back pain Mumps (1977) Nerve compression syndrome Ovarian cyst (1992) Panic attacks depression (2012) Reactive arthritis (2004) Surgical History History of nasal surgery (1991) History of tonsillectomy (1986) Hx of oophorectomy (1991) Status post breast reduction (2006) Family History Grandfather Age: 87 Lymphoma Grandmother Age: 85 Hypertension Mother Age: 65 Hypertension Grandfather No problems noted. Grandmother Myocardial infarction Social History Smoking Status: Never smoker Smoking Status: Never smoker alcohol intake frequency: 0-2 drinks per day Substance Use Type: does not use Exam Initial Vital Signs Initial Vital Signs: Vital Signs Temperature 98.1 F 10/19/21 07:55 Pulse Rate 70 10/19/21 07:55 Respiratory Rate 18 10/19/21 07:55 Blood Pressure 104/55 L 10/19/21 07:55 Pulse Oximetry 98 10/19/21 07:55 GENERAL: Alert pleasant well-appearing 46-year-old female HEENT: Head atraumatic,EOMI, pupils reactive, face symmetric, moist mucous membranes CARDIOVASCULAR: Regular rate and rhythm without murmurs, rubs or gallops. RESPIRATORY: Breath sounds equal bilaterally, no wheezes rales or rhonchi. ABDOMEN: Soft, nontender. Normoactive bowel sounds all 4 quadrants. No guarding or rebound. Negative Callejas sign EXTREMITIES: Normal range of motion, no clubbing or edema. Neurovascularly intact. Left ankle splinted able to move toes NEUROLOGICAL: Alert and oriented x4.Normal gait and speech. SKIN: Warm, dry, no laceration, no petechiae, no rashes or lesions. Course Orders Ordered: ED Orders 10/19/21 11:00 Complete Blood Count AUTO DIFF Stat 10/19/21 11:12 Comprehensive Metabolic Panel Stat Lipase Stat Magnesium Stat Troponin & CK Cardiac Panel Stat 10/19/21 11:19 CT angio chest PE protocol Stat Discontinued Medications Sodium Chloride (Normal Saline 0.9%) 1,000 mls @ 1,000 mls/hr IV BOLUS ONE Stop: 10/19/21 10:14 Last Infusion: 10/19/21 11:55 Dose: 1,000 mls/hr Documented by: Admin: 10/19/21 09:26 Dose: 1,000 mls/hr Documented by: CAROLINAONER Sodium Chloride (Normal Saline 0.9%) 1,000 mls @ 1,000 mls/hr IV BOLUS ONE Stop: 10/19/21 12:49 Last Infusion: 10/19/21 15:46 Dose: 0 mls/hr Documented by: Admin: 10/19/21 12:04 Dose: 1,000 mls/hr Documented by: BTONER Ketorolac Tromethamine (Ketorolac 30 Mg/Ml Vial) 30 mg IV NOW ONE Stop: 10/19/21 13:05 Last Admin: 10/19/21 13:09 Dose: 30 mg Documented by: CAROLINAONER Morphine Sulfate (Morphine 4 Mg/Ml Inj) 4 mg IV NOW ONE Stop: 10/19/21 08:40 Last Admin: 10/19/21 09:26 Dose: 4 mg Documented by: CAROLINAONER Ondansetron HCl (Ondansetron 4 Mg/2 Ml Inj) 4 mg IV NOW ONE Stop: 10/19/21 10:12 Last Admin: 10/19/21 10:15 Dose: 4 mg Documented by: CAROLINAONER Vital Signs Vital signs: Vital Signs - 8 hr 10/19/21 11:35 10/19/21 12:00 10/19/21 12:03 Pulse Rate 71 66 65 Blood Pressure 108/52 L Pulse Oximetry 82 L 98 99 10/19/21 12:30 Pulse Rate 67 Blood Pressure 106/53 L Pulse Oximetry 95 MDM - Abdominal Pain Lab Data Result diagrams: 10/19/21 11:00 10/19/21 11:12 Labs: Lab Results 10/19/21 10/19/21 10/19/21 Range/Units 09:45 09:45 11:00 WBC 11.2 H (4.5-11.0) X10^3/uL RBC 4.81 (4.0-5.2) X10^6/uL Hgb 14.2 (12.0-16.0) g/dL Hct 43.0 (36-46) % MCV 89.3 (80-100) fL MCH 29.5 (26-34) PG MCHC 33.1 (30-36) % RDW 14.1 (11.6-14.8) % Plt Count 241 (150-400) X10^3/uL Neut % (Auto) 76.0 H (50-75) % Lymph % (Auto) 18.7 L (25-40) % Pitt % (Auto) 3.7 (3-14) % Eos % (Auto) 1.3 L (2-4) % Baso % (Auto) 0.3 (0-2) % Neut # (Auto) 8500 H (9294-2346) /uL Lymph # (Auto) 2100 (2773-3639) /uL Pitt # (Auto) 400 (0-900) /uL Eos # (Auto) 100 (0-450) /uL Baso # (Auto) 0 (0-100) /uL PT 10.8 (10.1-12.7) SECONDS INR 1.0 (0.9-1.3) APTT 19 L D (26.4-36.2) SECONDS D-Dimer 348 H Cancelled (<230) ng/mL Sodium (137-145) mmol/L Potassium (3.4-5.1) mmol/L Chloride (98-107) mmol/L Carbon Dioxide (22-32) mmol/L BUN (7-17) mg/dL Creatinine (0.52-1.04) mg/dL Estimated GFR (>60) mL/min BUN/Creatinine Ratio (6-22) Glucose (70-100) mg/dL Calcium (8.4-10.2) mg/dL Magnesium (1.6-2.3) mg/dL Total Bilirubin (0.2-1.3) mg/dL AST (14-36) IU/L ALT (<35) IU/L Alkaline Phosphatase (38-126) U/L Total Creatine Kinase (30-135) U/L CK-MB (CK-2) CK-MB (CK-2) Rel Index Troponin I (0.01-0.034) ng/mL Total Protein (6.3-8.2) g/dL Albumin (3.5-5.0) g/dL Globulin (1.7-4.1) g/dL Albumin/Globulin Ratio (1.0-2.8) Lipase (23-300) U/L // Range/Units 11:12 WBC (4.5-11.0) X10^3/uL RBC (4.0-5.2) X10^6/uL Hgb (12.0-16.0) g/dL Hct (36-46) % MCV (80-100) fL MCH (26-34) PG MCHC (30-36) % RDW (11.6-14.8) % Plt Count (150-400) X10^3/uL Neut % (Auto) (50-75) % Lymph % (Auto) (25-40) % Pitt % (Auto) (3-14) % Eos % (Auto) (2-4) % Baso % (Auto) (0-2) % Neut # (Auto) (6981-9248) /uL Lymph # (Auto) (9226-7206) /uL Pitt # (Auto) (0-900) /uL Eos # (Auto) (0-450) /uL Baso # (Auto) (0-100) /uL PT (10.1-12.7) SECONDS INR (0.9-1.3) APTT (26.4-36.2) SECONDS D-Dimer (<230) ng/mL Sodium 138 (137-145) mmol/L Potassium 4.5 (3.4-5.1) mmol/L Chloride 108 H (98-107) mmol/L Carbon Dioxide 28 (22-32) mmol/L BUN 10 (7-17) mg/dL Creatinine 0.55 (0.52-1.04) mg/dL Estimated GFR > 60.0 (>60) mL/min BUN/Creatinine Ratio 18.2 (6-22) Glucose 93 (70-100) mg/dL Calcium 8.6 (8.4-10.2) mg/dL Magnesium 2.2 (1.6-2.3) mg/dL Total Bilirubin 0.5 (0.2-1.3) mg/dL AST 75 H (14-36) IU/L ALT 103 H (<35) IU/L Alkaline Phosphatase 71 (38-126) U/L Total Creatine Kinase 66 (30-135) U/L CK-MB (CK-2) TNP CK-MB (CK-2) Rel Index TNP Troponin I 0.017 (0.01-0.034) ng/mL Total Protein 6.8 (6.3-8.2) g/dL Albumin 4.0 (3.5-5.0) g/dL Globulin 2.8 (1.7-4.1) g/dL Albumin/Globulin Ratio 1.4 (1.0-2.8) Lipase 81 (23-300) U/L Point of care testing: Urine Dip Bedside Urine Glucose Negative Bedside Urine Bilirubin - Negative Bedside Urine Ketone - Negative Urine Specific [place] 1.015 Bedside Urine Occult Blood - Negative Bedside Urine pH 7.0 Bedside Urine Protein - Negative Bedside Urine Urobilinogen - Negative Bedside Urine Nitrite - Negative Bedside Urine Leukocytes - Negative Esterase Imaging Data Chest x-ray: Radiologist's Impression: PROCEDURE:? XR CHEST 1V ? INDICATIONS:? chest pain ? TECHNIQUE:? One view of the chest was acquired.? ? COMPARISON:? [facility], , XR CHEST 1V, 01/21/2021, 13:54. ? FINDINGS:? ? Surgical changes and devices:? None.? ? Lungs and pleura:? Lungs are clear.? No pleural effusions or pneumothorax.? ? Mediastinum:? Mediastinal contours appear unchanged.? Heart size is normal.? ? Bones and chest wall:? No suspicious bony lesions.? Overlying soft tissues appear unremarkable.? ? IMPRESSION:? No acute cardiopulmonary abnormality. ? ? ? Dictated by: Lyle Lane M.D. on 10/19/2021 at 8:11 ? ? CT scan - chest: Radiologist's Impression: PROCEDURE:? CT ANGIO CHEST PE PROTOCOL ? INDICATIONS:? epigastric pain recent surgery ? TECHNIQUE:? After the administration of intravenous contrast, 2 mm thick sections acquired from the pulmonary apices to the posterior costophrenic angles.? 3-dimensional maximum intensity projection (MIP) coronal and sagittal reformats were then acquired through the thorax.? For radiation dose reduction, the following was used:? automated exposure control, adjustment of mA and/or kV according to patient size.? ? COMPARISON:? [facility], CR, XR CHEST 1V, 10/19/2021, 7:50. ? FINDINGS:? Image quality:? Excellent.? ? Pulmonary arteries:? Pulmonary arteries are normal in size, and demonstrate no intraluminal filling defects to suggest central pulmonary embolism.? ? Lungs and pleura:? Scattered areas linear opacity are present suggestive of atelectasis versus scarring.? No pleural effusions or pneumothorax.? Central and peripheral airways are patent.? ? Mediastinum:? Heart size is normal, without pericardial effusion.? No mediastinal or hilar adenopathy.? Thoracic aorta is normal in caliber and enhancement.? Esophagus is normal in caliber, without hiatal hernia.? ? Bones and chest wall:? No suspicious bony lesions.? Ribs and thoracic spine appear intact throughout.? Thyroid gland is unremarkable.? No axillary or supraclavicular adenopathy.? ? Abdomen:? Visualized upper abdominal solid organs appear normal in the early arterial phase of enhancement.? ? IMPRESSION:? ? 1. Scattered areas of scarring versus atelectasis. ? 2. No pulmonary embolism.? ? ? Dictated by: Brea Little M.D. on 10/19/2021 at 11:52 ? ? US - abdomen: Radiologist's Impression: PROCEDURE:? US ABDOMEN LIMITED ? INDICATIONS:? RUQ PAIN ? TECHNIQUE:? Real-time scanning was performed of the right upper quadrant, with image documentation.? ? COMPARISON:? None. ? FINDINGS:? ? Liver:? Liver is normal in size and homogeneous in echotexture.? ? Gallbladder:? Nondilated. No stones or sludge. Normal gallbladder wall thickness. No pericholecystic fluid. Negative sonographic Callejas's sign.? ? Biliary ducts:? Intrahepatic bile ducts are non-dilated.? Extrahepatic bile duct caliber measures 5 mm.? Normal is 6-7 mm or less in diameter, or 10 mm or less post-cholecystectomy.? ? Pancreas:? Not well seen. ? ? IMPRESSION:? 1. No acute cholecystitis demonstrated.? No gallstones. ? 2. No biliary ductal dilatation.? ? 3. Pancreas is not well seen. ? ? ? Dictated by: Lyle Lane M.D. on 10/19/2021 at 9:17 ? ? Approved by: Lyle Lane M.D. on 10/19/2021 at 9:19 ? ECG Data Interpretation: Normal sinus rhythm rate 67 NC interval 166 QRS [address] changes no T-wave inversion, similar to priors MDM Narrative Medical decision making narrative: Patient is a very difficult lab draw a took some time to get blood work. She is given IV fluids in the ED and pain medications. D-dimer is mildly elevated however CT angio is negative for pulmonary embolism. She is having some epigastric pain mild elevation in liver enzymes, however bilirubin is within normal limits. Ultrasound did not show any gallstones or abnormality. I suspect an episode of mild biliary colic. Symptoms are unlikely to be cardiac related. At this time recommend close outpatient follow-up. Discharge Plan Departure Patient Disposition: Home Clinical Impression: Abdominal pain Instructions: Gallstones Activity Restrictions/Additional Instructions: *You have been diagnosed with abdominal pain *What to do: At this time have mild elevation of his liver enzymes. It made her may not be related to your gallbladder. Other workup is negative today. Please follow-up with your primary care provider and orthopedic. *Continue to take medications as directed *Follow up with your primary care provider in 2-3 days or call [phone] *Return to ER if you should have increasing pain, nausea, vomiting, fever, shortness of breath chest pain or any new, worsening or concerning symptoms Prescriptions: No Action albuterol sulfate 90 mcg/actuation HFA aerosol inhaler 2 puff INHALATION Q4-6H PRN (Reason: shortness of breath) Qty: 8.5 1RF cholecalciferol (vitamin D3) 125 mcg (5,000 unit) capsule 10,000 unit PO QDAY Qty: 0 0RF buspirone 5 mg tablet 5 mg PO BID Qty: 60 1RF Rx Instructions: Take 1 tab daily x2-3 days if still experiencing PVCs, increase to BID dosing bupropion HCl [Wellbutrin XL] 150 mg tablet extended release 24 hr 150 mg PO QAM Qty: 90 3RF Rx Instructions: Take 1 tab by mouth daily for depression metoprolol succinate 25 mg tablet extended release 24 hr 50 mg PO DAILY Qty: 60 2RF Rx Instructions: Take 2 tablets (50mg) by mouth daily for heart palpitations, anxiety clonazepam 0.5 mg tablet 0.25 mg PO BID PRN (Reason: anxiety) Qty: 10 2RF Rx Instructions: Take 1/2 tab by mouth as needed for anxiety Referrals: Georgette Maddox ARNP [Primary Care Provider] -
--- NOTE | 2021-10-19 08:29 | DI.US.S_ITS ---
PROCEDURE: US ABDOMEN LIMITED INDICATIONS: RUQ PAIN TECHNIQUE: Real-time scanning was performed of the right upper quadrant, with image documentation. COMPARISON: None. FINDINGS: Liver: Liver is normal in size and homogeneous in echotexture. Gallbladder: Nondilated. No stones or sludge. Normal gallbladder wall thickness. No pericholecystic fluid. Negative sonographic Callejas's sign. Biliary ducts: Intrahepatic bile ducts are non-dilated. Extrahepatic bile duct caliber measures 5 mm. Normal is 6-7 mm or less in diameter, or 10 mm or less post-cholecystectomy. Pancreas: Not well seen. IMPRESSION: 1. No acute cholecystitis demonstrated. No gallstones. 2. No biliary ductal dilatation. 3. Pancreas is not well seen. Dictated by: Lyle Lane M.D. on 10/19/2021 at 9:17 Approved by: Lyle Lane M.D. on 10/19/2021 at 9:19
[2021-10-19] MEDS: SODIUM CHLORIDE 0.9% 1,000 ML 1000 ML IV ×2 (09:26→12:04)
[2021-10-19] MEDS: MORPHINE 4 MG/ML INJ IV (09:26)
[2021-10-19] MEDS: ONDANSETRON 4 MG/2 ML INJ IV (10:15)
[2021-10-19 10:24] LABS: PTT Partial Thromboplastin Tim 19 SECONDS (26.4-36.2)
[2021-10-19 10:25] LABS: Prothrombin Time 10.8 SECONDS (10.1-12.7)
[2021-10-19 10:28] LABS: Creatine Kinase 66 U/L (30-135)
[2021-10-19 10:35] LABS: D Dimer 348 ng/mL (<230)
[2021-10-19 10:41] LABS: Troponin I 0.017 ng/mL (0.01-0.034)
[2021-10-19 11:16] LABS: Add Manual Diff / Slide Review NO; Basophils Absolute Auto 0 /uL (0-100); Basophils Percent Auto 0.3 % (0-2); Eosinophils Absolute Auto 100 /uL (0-450); Eosinophils Percent Auto 1.3 % (2-4); Hemoglobin 14.2 g/dL (12.0-16.0); Lymphocytes Absolute Auto 2100 /uL (1100-4500); Lymphocytes Percent Auto 18.7 % (25-40); Mean Corpuscular HGB Conc 33.1 % (30-36); Mean Corpuscular Hemoglobin 29.5 PG (26-34); Mean Corpuscular Volume 89.3 fL (80-100); Monocytes Absolute Auto 400 /uL (0-900); Monocytes Percent Auto 3.7 % (3-14); Neutrophils Absolute Auto 8500 /uL (1500-7000); Red Blood Cell Count 4.81 X10^6/uL (4.0-5.2); Red Cell Distribution Width 14.1 % (11.6-14.8); White Blood Cell Count 11.2 X10^3/uL (4.5-11.0)
--- NOTE | 2021-10-19 11:19 | DI.CT.S_ITS ---
PROCEDURE: CT ANGIO CHEST PE PROTOCOL INDICATIONS: epigastric pain recent surgery TECHNIQUE: After the administration of intravenous contrast, 2 mm thick sections acquired from the pulmonary apices to the posterior costophrenic angles. 3-dimensional maximum intensity projection (MIP) coronal and sagittal reformats were then acquired through the thorax. For radiation dose reduction, the following was used: automated exposure control, adjustment of mA and/or kV according to patient size. COMPARISON: [facility], CR, XR CHEST 1V, 10/19/2021, 7:50. FINDINGS: Image quality: Excellent. Pulmonary arteries: Pulmonary arteries are normal in size, and demonstrate no intraluminal filling defects to suggest central pulmonary embolism. Lungs and pleura: Scattered areas linear opacity are present suggestive of atelectasis versus scarring. No pleural effusions or pneumothorax. Central and peripheral airways are patent. Mediastinum: Heart size is normal, without pericardial effusion. No mediastinal or hilar adenopathy. Thoracic aorta is normal in caliber and enhancement. Esophagus is normal in caliber, without hiatal hernia. Bones and chest wall: No suspicious bony lesions. Ribs and thoracic spine appear intact throughout. Thyroid gland is unremarkable. No axillary or supraclavicular adenopathy. Abdomen: Visualized upper abdominal solid organs appear normal in the early arterial phase of enhancement. IMPRESSION: 1. Scattered areas of scarring versus atelectasis. 2. No pulmonary embolism. Dictated by: Brea Little M.D. on 10/19/2021 at 11:52 Approved by: Brea Little M.D. on 10/19/2021 at 11:54
[2021-10-19 11:24] LABS: Alanine Aminotransferase 103 IU/L (<35); Albumin Globulin Ratio 1.4 (1.0-2.8); Alkaline Phosphatase 71 U/L (38-126); Aspartate Aminotransferase 75 IU/L (14-36); BUN Creatinine Ratio 18.2 (6-22); Bilirubin Total 0.5 mg/dL (0.2-1.3); Blood Urea Nitrogen 10 mg/dL (7-17); Calcium 8.6 mg/dL (8.4-10.2); Carbon Dioxide 28 mmol/L (22-32); Chloride 108 mmol/L (98-107); Estimated Glomerular Filt Rate > 60.0 mL/min (>60); Globulin 2.8 g/dL (1.7-4.1); Glucose 93 mg/dL (70-100); Lipase 81 U/L (23-300); Magnesium 2.2 mg/dL (1.6-2.3); Potassium 4.5 mmol/L (3.4-5.1); Sodium 138 mmol/L (137-145); Total Protein 6.8 g/dL (6.3-8.2)
[2021-10-19 11:26] LABS: HEMOLYSIS 28 (0-50)
[2021-10-19 11:42] LABS: Platelet Count 241 X10^3/uL (150-400)
[2021-10-19] MEDS: KETOROLAC 30 MG/ML VIAL IV (13:09)
== END 2021-10-19 13:15 | disposition home or self-care (01) ==
PROVIDERS: Emergency Provider Emergency Medicine; PCP Nurse Practitioner
DX: R10.13 Epigastric pain (principal); R11.0 Nausea; R61 Generalized hyperhidrosis; R03.1 Nonspecific low blood-pressure reading
CPT/HCPCS: 36415; 71045; 71275; 76705; 80053; 81003; 82550; 83690; 83735; 84484; 85025; 85379; 85610; 85730; 93005; 96361; 96374; 96375; 99284; J1885; J2270; J2405

== ENCOUNTER → 2021-11-20 11:24 | Outpatient (CLI) | payer OTHER, SELFPAY ==
[2021-11-20 12:43] LABS: Alanine Aminotransferase 38 IU/L (<35); Albumin 4.4 g/dL (3.5-5.0); Albumin Globulin Ratio 1.3 (1.0-2.8); Alkaline Phosphatase 63 U/L (38-126); Aspartate Aminotransferase 36 IU/L (14-36); Bilirubin Total 0.4 mg/dL (0.2-1.3); Bilirubin Unconjugated 0.4 mg/dL (0.0-1.1); Globulin 3.4 g/dL (1.7-4.1); HEMOLYSIS < 15 (0-50); Total Protein 7.8 g/dL (6.3-8.2)
[2021-11-20 13:01] LABS: Free T3, Triiodothyronine Free 3.12 pg/mL (2.77-5.27); Free T4, Direct Thyroxine 0.81 ng/dL (0.78-2.19)
[2021-11-20 13:14] LABS: Thyroid Stimulating Hormone 1.82 uIU/mL (0.47-4.68)
== END ==
PROVIDERS: PCP Naturopath; Referring Provider Naturopath; Visit Provider Naturopath
DX: E03.9 Hypothyroidism, unspecified (principal); R94.5 Abnormal results of liver function studies
CPT/HCPCS: 36415; 80076; 84439; 84443; 84481

== ENCOUNTER → 2022-04-27 08:47 | Outpatient (CLI) | payer OTHER, SELFPAY ==
--- NOTE | 2022-04-27 | DI.MG.S_ITS ---
BILATERAL DIGITAL DIAGNOSTIC MAMMOGRAM 3D/2D: 04/27/2022 CLINICAL: Palpable left breast lump. Comparison is made to exam dated: 09/09/2020 mammogram - [facility]. There are scattered fibroglandular elements in both breasts. No significant masses, calcifications, or other findings are seen in either breast. IMPRESSION: INCOMPLETE: NEEDS ADDITIONAL IMAGING EVALUATION No mammographic evidence of malignancy. A targeted ultrasound for left breast palpable abnormality is recommended and will immediately follow. Based on the Tyrer Cuzick model (a risk assessment model) the patient's lifetime risk is 10.2% and her 10 year risk is 1.9%. According to the ACR, ACS, and NCCN guidelines, an annual breast MRI exam along with mammogram is recommended if the patient's lifetime risk is 20% or greater. This exam was interpreted at Station ID: [id number]. NOTE: For mammograms, a report in lay terms will be sent to the patient. Approximately 15% of breast malignancies will not be visualized mammographically. In the management of a palpable breast mass, a negative mammogram must not discourage biopsy of a clinically suspicious lesion. Electronically Signed By: yLle Lane M.D. slc/:04/27/2022 09:25:16 ACR BI-RADS Category 0: Incomplete [id number]
--- NOTE | 2022-04-27 | DI.US.S_ITS ---
LIMITED ULTRASOUND OF LEFT BREAST: 04/27/2022 CLINICAL: Palpable left breast lump and focal pain. Comparison is made to exams dated: 04/27/2022 mammogram and 09/09/2020 mammogram - [facility]. Real-time ultrasound of the left breast 10-1 o'clock region was performed. Wasserman scale images of the real-time examination were reviewed. No significant abnormalities were seen sonographically in the left breast in the region of the palpable abnormality. IMPRESSION: NEGATIVE There is no sonographic evidence of malignancy. Exam findings were conveyed to the patient. Patient is advised to monitor for significant change. Clinical follow-up as needed. A 1 year screening mammogram is recommended. This exam was interpreted at Station ID: [id number]. Electronically Signed By: Lyle Lane M.D. slc/:04/27/2022 09:41:58 letter sent: Normal Exam Ultrasound BI-RADS: 1 Negative
== END ==
PROVIDERS: PCP Naturopath; Referring Provider Naturopath; Visit Provider Naturopath
DX: N63.32 Unspecified lump in axillary tail of the left breast (principal)
CPT/HCPCS: 76642; 77066; G0279

== ENCOUNTER → 2022-12-14 15:42 | Outpatient (CLI) | payer OTHER, SELFPAY ==
--- NOTE | 2022-12-14 15:45 | DI.RAD.S_ITS ---
PROCEDURE: XR KNEE LT 1TO2V INDICATIONS: KNEE PAIN TECHNIQUE: 2 views of the knee were acquired. COMPARISON: None. FINDINGS: Bones: No fractures or dislocations. No suspicious bony lesions. Soft tissues: No joint effusion. No suspicious soft tissue calcifications. IMPRESSION: No fracture. No osseous lesion. If symptoms and/or clinical suspicion for pathology persists, further assessment with repeat radiographs (7-10 days) or advanced imaging (e.g. CT, MRI or bone scan) should be considered. Dictated by: Felipa Kuhn MD, PhD on 12/14/2022 at 16:31 Approved by: Felipa Kuhn MD, PhD on 12/14/2022 at 16:32
--- NOTE | 2022-12-14 15:45 | DI.RAD.S_ITS ---
PROCEDURE: XR KNEE RT 1TO2V INDICATIONS: KNEE PAIN TECHNIQUE: 2 views of the knee were acquired. COMPARISON: None. FINDINGS: Bones: No fractures or dislocations. No suspicious bony lesions. Soft tissues: No joint effusion. No suspicious soft tissue calcifications. IMPRESSION: No fracture. No osseous lesion. If symptoms and/or clinical suspicion for pathology persists, further assessment with repeat radiographs (7-10 days) or advanced imaging (e.g. CT, MRI or bone scan) should be considered. Dictated by: Felipa Kuhn MD, PhD on 12/14/2022 at 16:32 Approved by: Felipa Kuhn MD, PhD on 12/14/2022 at 16:32
== END ==
PROVIDERS: PCP Naturopath; Referring Provider Naturopath; Visit Provider Naturopath
DX: M25.561 Pain in right knee (principal); M25.562 Pain in left knee
CPT/HCPCS: 73560

== ENCOUNTER → 2024-03-26 11:10 | Outpatient (CLI) | payer OTHER, SELFPAY ==
[2024-03-26 12:11] LABS: Appearance Urine UA CLEAR; Bilirubin Urine UA NEGATIVE (NEGATIVE); Color Urine UA YELLOW; Glucose Urine UA NEGATIVE (Negative); Ketones Urine UA NEGATIVE (NEGATIVE); Leukocyte Esterase Urine UA NEGATIVE (NEGATIVE); Nitrite Urine UA NEGATIVE (Negative); Occult Blood Urine UA NEGATIVE (Negative); Protein Urine UA NEGATIVE (Negative); Specific Gravity Urine UA >=1.030 (1.000-1.035); Urine Volume 10mL (spun); Urobilinogen Urine UA 0.2 E.U./dL (0.2)
[2024-03-26 12:13] LABS: Bacteria Urine None Seen; Calcium Oxalate Crystals Urine Few; Culture Indicated Urine Cult Not Indicated; RBC Urine None Seen (0-5/HPF); Squamous Epithelial Cell Urine None Seen (0-5/HPF); WBC Urine None Seen (0-5/HPF)
[2024-03-26 12:21] LABS: Add Manual Diff / Slide Review NO; Basophils Absolute Auto 0 /uL (0-100); Basophils Percent Auto 0.4 % (0-2); Eosinophils Absolute Auto 100 /uL (0-450); Eosinophils Percent Auto 1.8 % (2-4); Hematocrit 39.4 % (36-46); Hemoglobin 13.3 g/dL (12.0-16.0); Lymphocytes Absolute Auto 2500 /uL (1100-4500); Lymphocytes Percent Auto 31.8 % (25-40); Mean Corpuscular HGB Conc 33.8 % (30-36); Mean Corpuscular Hemoglobin 30.4 PG (26-34); Mean Corpuscular Volume 90.2 fL (80-100); Monocytes Absolute Auto 400 /uL (0-900); Monocytes Percent Auto 4.9 % (3-14); Neutrophils Absolute Auto 4800 /uL (1500-7000); Neutrophils Percent Auto 61.1 % (50-75); Platelet Count 291 X10^3/uL (150-400); Red Blood Cell Count 4.37 X10^6/uL (4.0-5.2); Red Cell Distribution Width 14.1 % (11.6-14.8); White Blood Cell Count 7.9 X10^3/uL (4.5-11.0)
[2024-03-26 12:26] LABS: Hemoglobin A1C% w Est Avg Glu 4.9 % (4.0-6.0)
[2024-03-26 12:37] LABS: INR 0.9 (0.9-1.3); Prothrombin Time 10.5 SECONDS (9.4-12.5)
[2024-03-26 12:42] LABS: HEMOLYSIS < 15 (0-50); Iron 76 ug/dL (37-170)
[2024-03-26 12:50] LABS: Alanine Aminotransferase 22 IU/L (<35); Albumin 4.2 g/dL (3.5-5.0); Albumin Globulin Ratio 1.7 (1.0-2.8); Alkaline Phosphatase 68 U/L (38-126); Aspartate Aminotransferase 22 IU/L (14-36); BUN Creatinine Ratio 26.5 (6-22); Bilirubin Total 0.5 mg/dL (0.2-1.3); Blood Urea Nitrogen 13 mg/dL (7-17); Calcium 9.2 mg/dL (8.4-10.2); Carbon Dioxide 29 mmol/L (22-32); Chloride 103 mmol/L (98-107); Cholesterol 210 mg/dL (140-199); Estimated Glomerular Filt Rate > 60 mL/min (>60); Globulin 2.5 g/dL (1.7-4.1); Glucose 92 mg/dL (70-100); HDL Cholesterol 89 mg/dL (40-60); HEMOLYSIS < 15 (0-50); LDL Cholesterol Calculated 94 mg/dL (<100); Potassium 4.2 mmol/L (3.4-5.1); Sodium 136 mmol/L (137-145); Total Protein 6.7 g/dL (6.3-8.2); Triglycerides 136 mg/dL (35-150)
[2024-03-26 12:53] LABS: Percent Iron Saturation 19 % (15-50); Total Iron Binding Capacity 407 ug/dL (265-497); Transferrin 317 mg/dL (206-381)
[2024-03-26 13:18] LABS: Ferritin 28 ng/mL (6-137)
== END ==
PROVIDERS: PCP Naturopath; Referring Provider Naturopath; Visit Provider Naturopath
DX: Z00.00 Encounter for general adult medical examination without abnormal findings (principal); Z01.818 Encounter for other preprocedural examination
CPT/HCPCS: 36415; 80053; 80061; 81001; 82728; 83036; 83540; 83550; 85025; 85610; 93005